=== PATIENT | male | born 1935 | race Caucasian/White ===

== ENCOUNTER 2017-05-02 12:38 | Inpatient (IN) | payer MEDICARE, OTHER ==
--- NOTE | 2017-05-02 13:04 | ERNOTE ---
Dyspnea - General Time Seen by Provider: 05/02/17 13:01 Source: patient, family - patients and friend are in the room for translation Exam Limitations: no limitations - Immun/Allergies/Home Medications Allergies/Adverse Reactions: Allergies No Known Allergies Allergy (Verified 04/14/14 17:29) Home Medications: HOME MEDICATIONS Atorvastatin Calcium [Lipitor] 20 mg PO HS 04/14/14 [Last Taken Unknown] Cetirizine HCl [Zyrtec] 10 mg PO HS 04/14/14 [Last Taken Unknown] Clopidogrel Bisulfate [Plavix] 75 mg PO DAILY 04/14/14 [Last Taken Unknown] Furosemide [Lasix] 40 mg PO DAILY 04/14/14 [Last Taken Unknown] Metoprolol Succinate [Toprol Xl] 25 mg PO HS 04/14/14 [Last Taken Unknown] Potassium Chloride [K-Dur] 40 meq PO DAILY 04/14/14 [Last Taken Unknown] Benazepril HCl 20 mg PO DAILY 05/02/17 [Last Taken Unknown] Pantoprazole Sodium [Protonix] 40 mg PO DAILY 05/02/17 [Last Taken Unknown] - History of Present Illness Narrative: This is a patient who is hearing disabled who presents to the ER and conveys to us that he has had left-sided chest wall pain for approximately 1 week mostly when he tries to get up. There is no history of cough or shortness of breath. Review of Systems - Review of Systems Constitutional: Present: no symptoms reported EYE: Present: no symptoms reported ENT: Present: no symptoms reported Respiratory: Present: no symptoms reported Cardiology: Present: See HPI Gastrointestinal/Abdominal: Present: no symptoms reported Genitourinary: Present: no symptoms reported Musculoskeletal: Present: no symptoms reported Skin: Present: no symptoms reported Physical Exam - Physical Exam General Appearance: Present: wd/wn, alert, no apparent distress - patient appears very pale and tired and fatigued Head Exam: Present: normal inspection, no evidence of injury Ears, Nose, Throat: Present: normal ENT inspection, normal pharynx Neck: Present: normal inspection, nontender Respiratory: Present: no respiratory distress, normal breath sounds, no accessory muscle use, lungs clear, other - there is tenderness in the left upper quadrant of the abdomen upon palpation but no masses and no rebound. There are no bruising in the left chest wall area or crepitus lungs are clear to auscultation bilaterally Cardiovascular/Chest: Present: regular rate, rhythm, no murmur, normal peripheral pulses Gastrointestinal/Abdominal: Present: normal bowel sounds Extremity Exam: Present: normal inspection, normal range of motion Neurological Exam: Present: alert, oriented - H and is deaf however he is able to sign and he is able to understand and read lips. He answers appropriately. ED Progress - Results and Orders Patient's Lab Results:: I have reviewed the patient's lab results. - Vital Signs Patient's Vital Signs:: I have reviewed the patient's vital signs. Vital Signs: Vital Signs 05/02/17 12:51 Temperature 37.1 C Pulse Rate 100 Respiratory 18 Rate Blood Pressure 124/51 O2 Sat by Pulse 95 Oximetry - Progress/Reassessment Chief Complaint: Dyspnea Plan - Plan Plan: This patient has severe anemia with a hemoglobin of 4.9. Additionally his white count is less than 1.6. There is no history of active bleeding however Dr. Real was consulted in regards to admitting this patient for transfusion and further workup. In the stable and appropriate to be admitted type and screen has been ordered. Departure Clinical Impression: Anemia Qualifiers: Anemia type: unspecified type Qualified Code(s): D64.9 - Anemia, unspecified - Departure Disposition: [facility] Condition: Fair
[2017-05-02 13:31] LABS: Mean Cell Volume 105.1 fl (78-100); Mean Corpuscular Hgb Conc 34.3 g/dl (32-36); Mean Platelet Volume 11.2 fl (6.0-9.5); Platelet Count 42 K/mm3 (150-450); Red Blood Count 1.36 M/mm3 (4.7-6.0); Red Cell Distribution Width 19.5 % (11.5-14.0); White Blood Count 0.6 K/mm3 (4.0-10.5)
[2017-05-02 13:32] LABS: Hematocrit 14.3 % (42.0-52.0); Hemoglobin 4.9 gm/dL (13.5-18.0)
[2017-05-02 13:33] LABS: Total Cells Counted 100
[2017-05-02 13:37] LABS: Albumin * 3.2 gm/dl (3.4-5.0); BUN/Creatinine Ratio 20.2 (9.0-21.6); Bilirubin, Total 0.5 mg/dL (0.0-1.1); Ca. Corrected For Albumin 8.3 mg/dL (8.4-10.2); Total Protein 7.3 gm/dL (6.2-8.2)
[2017-05-02 14:01] LABS: Atypical (Reactive) Lymph 8 % (0-2); Immature Granulocyte 2 (0-1); Lymphocyte 50 % (20-51); Monocyte 10 % (0-9); Neutrophil 30 % (42-75); Neutrophil # 0.2 K/mm3 (1.3-6.0); Platelet Estimate Decreased (NORMAL)
[2017-05-02 14:02] LABS: Anisocytosis 2+; Hypochromia 2+; Microcytosis 2+
[2017-05-02 14:06] LABS: Troponin I 0.09 ng/ml (0.00-0.10)
[2017-05-02 14:12] LABS: CKMB 1.1 ng/mL (0.0-9.0)
[2017-05-02 14:18] LABS: Iron 98 mcg/dL (35-120); Transferrin Sat. (% Sat.) 52 % (15-55)
[2017-05-02 14:45] LABS: LD 166 U/L (85-227); Vitamin B12 212 pg/mL (193-986)
[2017-05-02 14:48] LABS: T4 Free * 1.03 ng/dL (0.76-1.46); TSH * 1.451 uIU/mL (0.358-3.74)
[2017-05-02] MEDS ORDERED: FUROSEMIDE 10 MG/ML VIAL IV PRN ×2 (15:16→15:17)
--- NOTE | 2017-05-02 15:43 | PATHPSR ---
PHYSICIAN: Salina Real DO LAB#: [id number] SPECIMEN DATE: 05/02/2017 CLINICAL INFORMATION: Patient is an 82-year-old man with a history of hypertension, congestive heart failure, chronic renal disease, hyperlipidemia, CVA. Previous CBC on 09/24/2016 showing mild pancytopenia WBC 3.9K/mm3, hematocrit 26.4 and platelets 147,000. He presents to [facility] ER with marked pancytopenia and a peripheral smear review is triggered by the abnormal results. CBC: WBC 0.6 K/mm3, hemoglobin4.9 gm/dl, hematocrit 14.3 %, MCV is 105.1 fl, MCH is 36.0 pg, MCHC is 34.3 g/dl, Platelet count 42,000. Manual differential: Neutrophils 30 %, bands 0 %, lymphocytes 50 %, monocytes 10 %, eosinophils 0 %, basophils 0 %, atypical reactive lymphocytes 8 %, immature granulocytes 2%. RED BLOOD CELLS: Hyperchromic macrocytic anemia with 2+ anisocytosis PLATELETS: Thrombocytopenia WHITE BLOOD CELLS: Marked leukopenia with few immature granulocytes PERIPHERAL BLOOD SMEAR, REVIEW BY PATHOLOGIST: -PANCYTOPENIA, SEVERE COMMENT: The etiology of the marked increase in pancytopenia from September 2016 is not determined on review of the peripheral smear. Patient has increased iron stores; normal B12 and folate. Review of the clinical history and possible hematologic consultation for bone marrow evaluation is suggested to determine etiology. Findings are discussed with Dr. Salina Real on 2016.
[2017-05-02] MEDS: CYANOCOBALAMIN 1,000 MCG/ML VIAL IM SCH (17:53)
[2017-05-02] MEDS: LORATADINE 10 MG TABLET PO SCH (20:10)
[2017-05-02] MEDS: ROSUVASTATIN CALCIUM 10 MG TABLET PO SCH (20:10)
[2017-05-02] MEDS: METOPROLOL SUCCINATE 25 MG TABLET.SA PO SCH (20:10)
--- NOTE | 2017-05-02 23:11 | HP ---
Chief Complaint - Chief Complaint Date of Service: 05/02/17 Time of Service: 23:11 Chief Complaint: weakness and abdominal pain with cough History of Present Illness: 82 year old male adm to the hospital from ER with reports of abdominal pain associated with cough and generalized weakness x 1 week. pt stated he has been getting progressively weak over the past week. He has also noticed blood in his stool around the same time. Today he was feeling much worst so his insisted that he come to the hospital. He denies fever, chills, palpitation or rigors.In ER hgb 4.9 Hct 14.3, WBC 0.6 Plt 42 and dimer 0.75. Pt had mild pancytopenia in the past however on this adm he his severe with a WBC 0.6: CXR: Right pleural thickening/ pleural fluid improved resolution of right lung base infiltrate. Recommendation for F/U study in 1 month. He his s/p 2 UPRBC transfused and currently undergoing 2 additional units with an improved hgb 6.9 post initial transfusion.Peripheral smear done --severe pancytopenia and pathology recommendation for bone marrow evaluation. PMH significant for Anemia , esophagitis gastritis, hypertension,CHF, chronic renal disease, hyperlipidemia and CVA (right side residual deficits). Plan of care discussed with pt he verbalized understanding and agree. - Patient's Past Medical History Patient History - Medical: Anemia, GERD, Other - pancytopenia, chronic renal disease, Patient History - Cardiac/Respiratory: CHF, CVA/Stroke, Hypertension, Hyperlipidemia Patient History - Cancer: No Hx of Cancer Patient History - Surgical Procedures: No surgical history Patient History - Other: None - Family History Mother Family History - Medical: Family History - Cardiac/Respiratory: Myocardial Infarction Father Family History - Medical: Family History - Cardiac/Respiratory: Myocardial Infarction - Social History Living Situations: spouse Abuse History: No History of abuse Psych History: No pertinent hx Smoking Status: Never smoker Have you smoked in the past 12 months: No Do you dip or chew tobacco: No Patient requests Smoking Cessation Consult: No Initiate information on Smoking Cessation: No Alcohol Use: none Drug Use: none - Immunizations Immunizations Up to Date: Yes Review Of Systems (GEN) - Review of Systems Generalized/Overall Review: Present: Weakness, Malaise EENTM: Present: Other - deaf Respiratory: Present: Cough Cardiac: Present: No Symptoms Reported Abdominal: Present: Abdominal Pain Genitourinary: Present: No Symptoms Reported Musculoskeletal: Present: No Symptoms Reported Neurological: Present: Weakness - rightside Skin: Present: No Symptoms Reported Endocrine: Present: No Symptoms Reported Allergies/Adverse Reactions: Allergies Allergy/AdvReac Type Severity Reaction Status Date / Time No Known Allergies Allergy Verified 05/02/17 16:21 Home Medications: HOME MEDICATIONS Atorvastatin Calcium [Lipitor] 20 mg PO HS 04/14/14 [Last Taken Unknown] Cetirizine HCl [Zyrtec] 10 mg PO HS 04/14/14 [Last Taken Unknown] Clopidogrel Bisulfate [Plavix] 75 mg PO DAILY 04/14/14 [Last Taken Unknown] Furosemide [Lasix] 40 mg PO DAILY 04/14/14 [Last Taken Unknown] Benazepril HCl 20 mg PO DAILY 05/02/17 [Last Taken Unknown] Furosemide 20 mg PO MOWEFR 05/02/17 [Last Taken Unknown] Lactobacillus 3/Fos/Pantethine [Probiotic & Acidophilus Cap] 1 each PO DAILY [Last Taken Unknown] Metoprolol Tartrate [Lopressor] 25 mg PO HS 05/02/17 [Last Taken Unknown] Multivitamins [Multivitamin Saniya] 1 cap PO DAILY 05/02/17 [Last Taken Unknown] Pantoprazole Sodium [Protonix] 40 mg PO DAILY 05/02/17 [Last Taken Unknown] Potassium Chloride [Klor-Con 10] 10 meq PO MOWEFR 05/02/17 [Last Taken Unknown] Exam - Exam Vital Signs: Vital Signs - Last Taken Temp 37 C 05/02/17 22:04 Pulse 105 H 05/02/17 22:04 Resp 20 05/02/17 22:04 BP 163/64 05/02/17 22:04 Pulse Ox 95 05/02/17 22:04 Constitutional: Present: Alert, Oriented x3, Cooperative, Elderly, Morbidly obese ENT Exam: Present: hard of hearing Eye Exam: bilateral eye: normal inspection Neck: Present: full range of motion Back Exam: Present: normal inspection Breasts: Present: Exam deferred Respiratory: Present: chest non-tender, normal breath sounds, no respiratory distress, decreased breath sounds Cardiovascular/Chest: Present: normal peripheral pulses, regular rate, rhythm Peripheral Pulses: dorsalis-pedis (R): 3+, dorsalis-pedis (L): 3+ Abdomen: Present: Normal bowel sounds, soft, nondistended, guarding - Left upper quadrant /Rectal: Present: Exam deferred Extremity: Present: non-tender, normal inspection, no pedal edema, no calf tenderness, normal capillary refill Skin Exam: Present: normal color Neurologic: Present: oriented x 3 Appearance: Present: appropriate appearance Eye contact: Present: cooperative, good eye contact Thoughts: Present: normal thought pattern Diagnostic Studies: Laboratory Results WBC 0.6 K/mm3 (4.0-10.5) L 05/02/17 13:15 RBC 1.36 M/mm3 (4.7-6.0) L 05/02/17 13:15 Hgb 4.9 gm/dL (13.5-18.0) L* D 05/02/17 13:15 Hct 14.3 % (42.0-52.0) L* D 05/02/17 13:15 MCV 105.1 fl (78-100) H 05/02/17 13:15 MCH 36.0 pg (27-31) H 05/02/17 13:15 MCHC 34.3 g/dl (32-36) 05/02/17 13:15 RDW 19.5 % (11.5-14.0) H 05/02/17 13:15 Plt Count 42 K/mm3 (150-450) L 05/02/17 13:15 MPV 11.2 fl (6.0-9.5) H 05/02/17 13:15 Neutrophils % (Manual) 30 % (42-75) L 05/02/17 13:15 Lymphocytes % (Manual) 50 % (20-51) 05/02/17 13:15 Monocytes % (Manual) 10 % (0-9) H 05/02/17 13:15 Immature Granulocytes 2 (0-1) H 05/02/17 13:15 Neutrophils # (Manual) 0.2 K/mm3 (1.3-6.0) L 05/02/17 13:15 Lymphocytes # (Manual) 0.3 k/mm3 (1.5-3.5) L 05/02/17 13:15 Monocytes # (Manual) 0.1 k/mm3 (0.0-1.0) 05/02/17 13:15 Atypic/Reactive Lymphs 8 % (0-2) H 05/02/17 13:15 Platelet Estimate Decreased (NORMAL) L 05/02/17 13:15 Hypochromasia 2+ 05/02/17 13:15 Anisocytosis 2+ 05/02/17 13:15 Microcytosis 2+ 05/02/17 13:15 Peripheral Blood Smear Smear sent to path. 05/02/17 13:15 Absolute Retic 0.0344 05/02/17 13:15 Percent Retic 2.6 % (0.4-1.8) H 05/02/17 13:15 Immature Retic Fraction 21.8 % (2.3-13.4) H 05/02/17 13:15 Retic Hgb Content 45.5 pg (29-35) H 05/02/17 13:15 D-Dimer 0.75 mg/L (0.19-0.49) H 05/02/17 13:15 Sodium 143 mmol/L (132-142) H 05/02/17 13:15 Plasma Sodium 143 mmol/L (130-142) H 05/02/17 13:15 Potassium 4.0 mmol/L (3.4-4.6) 05/02/17 13:15 Chloride 108 mmol/L (97-106) H 05/02/17 13:15 Carbon Dioxide 23.0 mmol/L (24-32.6) L 05/02/17 13:15 Anion Gap 16.0 mmol/L (6.8-13.8) H 05/02/17 13:15 BUN 35 mg/dL (6-23) H 05/02/17 13:15 Creatinine 1.73 mg/dL (0.4-1.4) H 05/02/17 13:15 Est GFR (Non-Af Amer) 41 mL/min (60-130) L 05/02/17 13:15 BUN/Creatinine Ratio 20.2 (9.0-21.6) 05/02/17 13:15 Random Glucose 114 mg/dL (70-110) H 05/02/17 13:15 Calcium 8.0 mg/dL (7.9-10.9) 05/02/17 13:15 Calcium Adj for Albumin 8.3 mg/dL (8.4-10.2) L 05/02/17 13:15 Iron 98 mcg/dL (35-120) 05/02/17 13:15 TIBC 188 mcg/dL (260-445) L 05/02/17 13:15 Transferrin % Sat 52 % (15-55) 05/02/17 13:15 Ferritin 478 ng/mL (26-388) H 05/02/17 13:30 Total Bilirubin 0.5 mg/dL (0.0-1.1) 05/02/17 13:15 AST 12 U/L (0-48) 05/02/17 13:15 ALT 12 U/L (19-67) L 05/02/17 13:15 Alkaline Phosphatase 54 U/L (50-170) 05/02/17 13:15 Lactate Dehydrogenase 166 U/L (85-227) 05/02/17 13:15 CK-MB (CK-2) 1.1 ng/mL (0.0-9.0) 05/02/17 13:15 Troponin I 0.090 ng/ml (0.00-0.10) 05/02/17 13:15 Total Protein 7.3 gm/dL (6.2-8.2) 05/02/17 13:15 Albumin 3.2 gm/dl (3.4-5.0) L 05/02/17 13:15 Vitamin B12 212 pg/mL (193-986) 05/02/17 13:15 Folate Greater than 20.0 ng/mL (>5.4) 05/02/17 13:15 TSH 1.451 uIU/mL (0.358-3.74) 05/02/17 13:30 Free T4 1.03 ng/dL (0.76-1.46) 05/02/17 13:30 Stool Occult Blood Negative 05/02/17 14:15 Blood Type O Positive 05/02/17 13:40 Antibody Screen Negative 05/02/17 13:40 Crossmatch See Detail 05/02/17 13:40 Assessment/Plan - Narrative Narrative: Macrocytic Anemia Pt has been anemic and needed blood transfusion On this adm hgb/Hct--->4.9/14.3 S/P 2UPRBC with 2 additional unit infusing monitor h/H 1hr post transfusion Pancytopenia On adm WBC 0.6, hgb 4.9 and Plt 42 Peripheral smear confirmed severe pancytopenia pathologist recommendation for bone marrow evaluation Thrombocytopenia On adm PLT 42 Code status: Full DVT ppx: SCD GI ppx: Protonix Time 45 minutes - Assessment/Plan (1) Pancytopenia Problem: Acute (2) Thrombocytopenia Problem: Acute (3) Anemia Problem: Chronic Qualifiers: Anemia type: unspecified type Qualified Code(s): D64.9 - Anemia, unspecified (4) CVA (cerebral vascular accident) Problem: Chronic (5) Hypertension Problem: Chronic (6) CHF (congestive heart failure) Problem: Chronic
[2017-05-02 23:17] LABS: Hematocrit 19.9 % (42.0-52.0); Hemoglobin 6.9 gm/dL (13.5-18.0)
[2017-05-02] MEDS ORDERED: diphenhydrAMINE HCL 50 MG/ML VIAL IV ONE (23:27)
[2017-05-02] MEDS ORDERED: ACETAMINOPHEN 325 MG TABLET PO ONE (23:27)
[2017-05-03] MEDS ORDERED: FUROSEMIDE 10 MG/ML VIAL IV ONE (03:04)
[2017-05-03] MEDS: PANTOPRAZOLE SODIUM 40 MG TABLET.EC PO SCH (07:23)
[2017-05-03] MEDS: POTASSIUM CHLORIDE 20 MEQ TABLET.SA PO SCH (08:49)
[2017-05-03] MEDS: FUROSEMIDE 40 MG TABLET PO SCH (08:49)
[2017-05-03] MEDS: CYANOCOBALAMIN 1,000 MCG/ML VIAL IM SCH (08:49)
[2017-05-03] MEDS: ENALAPRIL MALEATE 20 MG TABLET PO SCH (08:52)
[2017-05-03 09:03] LABS: Hematocrit 26.2 % (42.0-52.0)
[2017-05-03 09:20] LABS: BUN/Creatinine Ratio 21.9 (9.0-21.6); Calcium * 7.7 mg/dL (7.9-10.9); Carbon Dioxide 24.5 mmol/L (24-32.6); Estimated Creat Clear 33.7; Potassium 3.5 mmol/L (3.4-4.6)
[2017-05-03 17:59] LABS: Hematocrit 26.3 % (42.0-52.0); Mean Cell Volume 93.9 fl (78-100); Mean Corpuscular Hemoglobin 32.1 pg (27-31); Mean Corpuscular Hgb Conc 34.2 g/dl (32-36); Mean Platelet Volume 10.9 fl (6.0-9.5); Platelet Count 35 K/mm3 (150-450); Red Cell Distribution Width 19.5 % (11.5-14.0); White Blood Count 0.9 K/mm3 (4.0-10.5)
--- NOTE | 2017-05-03 20:01 | PN ---
Subjective - Date and Time Seen Date: 05/03/17 Time: 19:56 Subjective Narrative: Patient seen today AOX3 no acute distress, he denies lightheadedness, dizziness , fever, chills, malaise and shortness of breath. pt stated he was feeling much better and anticipating discharge home tomorrow. pt tolerated blood transfusion well and looking forward to bone marrow evaluation upon discharge. plan of care discussed with pt he verbalized understanding by writing and agrees. Objective - Review of Systems Generalized/Overall Review: Reports: No Symptoms Reported EENTM: Reports: No Symptoms Reported Respiratory: Reports: No Symptoms Reported Cardiac: Reports: No Symptoms Reported Abdominal: Reports: No Symptoms Reported Genitourinary Symptoms: Reports: No Symptoms Reported Musculoskeletal Complaints: Reports: No Symptoms Reported Neurological: Reports: No Symptoms Reported Skin: Reports: No Symptoms Reported Endocrine: Reports: No Symptoms Reported - Vitals Vitals: Last Vital Signs Temp 36.4 C L 05/03/17 15:00 Pulse 78 05/03/17 15:00 Resp 16 05/03/17 15:00 BP 144/53 05/03/17 15:00 Pulse Ox 97 05/03/17 15:00 - Abnormal Lab Findings Abnormal Lab Findings: Abnormal Lab Results 05/02/17 05/03/17 05/03/17 Range/Units 23:09 08:58 08:58 WBC (4.0-10.5) K/mm3 RBC (4.7-6.0) M/mm3 Hgb 6.9 L* D 9.0 L (13.5-18.0) gm/dL Hct 19.9 L* D 26.2 L (42.0-52.0) % MCH (27-31) pg RDW (11.5-14.0) % Plt Count (150-450) K/mm3 MPV (6.0-9.5) fl Anion Gap 15.0 H (6.8-13.8) mmol/L BUN 37 H (6-23) mg/dL Creatinine 1.69 H (0.4-1.4) mg/dL Est GFR (Non-Af Amer) 42 L (60-130) mL/min BUN/Creatinine Ratio 21.9 H (9.0-21.6) Random Glucose 154 H D (70-110) mg/dL Calcium 7.7 L (7.9-10.9) mg/dL 05/03/17 Range/Units 17:54 WBC 0.9 L D (4.0-10.5) K/mm3 RBC 2.80 L (4.7-6.0) M/mm3 Hgb 9.0 L (13.5-18.0) gm/dL Hct 26.3 L (42.0-52.0) % MCH 32.1 H (27-31) pg RDW 19.5 H (11.5-14.0) % Plt Count 35 L (150-450) K/mm3 MPV 10.9 H (6.0-9.5) fl Anion Gap (6.8-13.8) mmol/L BUN (6-23) mg/dL Creatinine (0.4-1.4) mg/dL Est GFR (Non-Af Amer) (60-130) mL/min BUN/Creatinine Ratio (9.0-21.6) Random Glucose (70-110) mg/dL Calcium (7.9-10.9) mg/dL - Exam Constitutional: Present: Alert, Oriented x3, Cooperative, Morbidly obese ENT Exam: Present: other - deaf Neck: Present: full range of motion Breasts: Present: Exam deferred Respiratory: Present: chest non-tender, normal breath sounds, no respiratory distress Cardiovascular/Chest: Present: normal peripheral pulses, regular rate, rhythm, no chest tenderness Abdomen: Present: Normal bowel sounds, soft, nontender, nondistended, no rebound tenderness /Rectal: Present: Exam deferred Extremity: Present: normal range of motion, other - rightside hemiparesis Skin Exam: Present: normal color, warm/dry Neurologic: Present: alert, oriented x 3, abnormal gait, motor weakness Appearance: Present: appropriate appearance, appropriate insight Eye contact: Present: cooperative, good eye contact Thoughts: Present: normal thought pattern Assessment/Plan Plan Narrative: Macrocytic Anemia- stable Pt has been anemic and needed blood transfusion On this adm hgb/Hct--->4.9/14.3---->9.0/26.2 post 4 UPRBC Monitor H/H In AM Pancytopenia On adm WBC 0.6-->0.9, hgb 4.9--->9.0, and Plt 42---->35 Peripheral smear confirmed severe pancytopenia pathologist recommendation for bone marrow evaluation pending Thrombocytopenia On adm PLT 42--->35 No observed or reports of active bleeding Chronic conditions that are stable CHF Hypertension CVA with rightside hemiparesis Code status: Full DVT ppx: SCD GI ppx: Protonix Anticipate discharge home tomorrow while H/H remains stable Plan to follow up out-pt for bone marrow evaluation. Time 25 minutes - Problems/Diagnosis (1) Pancytopenia Problem: Acute (2) Thrombocytopenia Problem: Acute (3) Anemia Problem: Chronic Qualifiers: Anemia type: unspecified type Qualified Code(s): D64.9 - Anemia, unspecified (4) CVA (cerebral vascular accident) Problem: Chronic (5) Hypertension Problem: Chronic (6) CHF (congestive heart failure) Problem: Chronic
[2017-05-03] MEDS: METOPROLOL SUCCINATE 25 MG TABLET.SA PO SCH (20:41)
[2017-05-03] MEDS: ROSUVASTATIN CALCIUM 10 MG TABLET PO SCH (20:41)
[2017-05-03] MEDS: LORATADINE 10 MG TABLET PO SCH (20:41)
[2017-05-04 06:25] LABS: Hematocrit 26.1 % (42.0-52.0); Mean Cell Volume 93.9 fl (78-100); Mean Corpuscular Hemoglobin 32.4 pg (27-31); Mean Corpuscular Hgb Conc 34.5 g/dl (32-36); Mean Platelet Volume 12.1 fl (6.0-9.5); Platelet Count 61 K/mm3 (150-450); Red Blood Count 2.78 M/mm3 (4.7-6.0); Red Cell Distribution Width 19.4 % (11.5-14.0); White Blood Count 0.9 K/mm3 (4.0-10.5)
[2017-05-04 06:27] LABS: Anion Gap 15.5 mmol/L (6.8-13.8); BUN/Creatinine Ratio 22.2 (9.0-21.6); Calcium * 8.4 mg/dL (7.9-10.9); Carbon Dioxide 22.9 mmol/L (24-32.6); Estimated Creat Clear 35.2; Potassium 4.4 mmol/L (3.4-4.6); Total Cells Counted 100
[2017-05-04 06:55] LABS: Atypical (Reactive) Lymph 13 % (0-2); Lymphocyte 52 % (20-51); Monocyte 12 % (0-9); Neutrophil 23 % (42-75); Neutrophil # 0.2 K/mm3 (1.3-6.0)
[2017-05-04 06:57] LABS: Anisocytosis 2+; Ovalocytes 1+; Platelet Estimate Decreased (NORMAL)
[2017-05-04 07:03] VITALS: BP 127/56
[2017-05-04] MEDS: PANTOPRAZOLE SODIUM 40 MG TABLET.EC PO SCH (07:06)
[2017-05-04] MEDS: POTASSIUM CHLORIDE 20 MEQ TABLET.SA PO SCH (08:36)
[2017-05-04] MEDS: FUROSEMIDE 40 MG TABLET PO SCH (08:36)
[2017-05-04] MEDS: ENALAPRIL MALEATE 20 MG TABLET PO SCH (08:36)
[2017-05-04] MEDS: CYANOCOBALAMIN 1,000 MCG/ML VIAL IM SCH (08:43)
--- NOTE | 2017-05-04 09:43 | DS ---
(1) Pancytopenia Problem: Acute Description of Stay: ADMISSION DATE: 05/02/2017 DISCHARGE DATE: 05/04/2017 ADMISSION HPI: 82 year old male adm to the hospital from ER with reports of abdominal pain associated with cough and generalized weakness x 1 week. pt stated he has been getting progressively weak over the past week. He has also noticed blood in his stool around the same time. Today he was feeling much worst so his insisted that he come to the hospital. He denies fever, chills, palpitation or rigors.In ER hgb 4.9 Hct 14.3, WBC 0.6 Plt 42 and dimer 0.75. Pt had mild pancytopenia in the past however on this adm he his severe with a WBC 0.6: CXR: Right pleural thickening/ pleural fluid improved resolution of right lung base infiltrate. Recommendation for F/U study in 1 month. He his s/p 2 UPRBC transfused and currently undergoing 2 additional units with an improved hgb 6.9 post initial transfusion.Peripheral smear done --severe pancytopenia and pathology recommendation for bone marrow evaluation. PMH significant for Anemia , esophagitis gastritis, hypertension,CHF, chronic renal disease, hyperlipidemia and CVA (right side residual deficits). Plan of care discussed with pt he verbalized understanding and agree. HOSPITAL COURSE: The patient was admitted to the hospital with severe pancytopenia of unclear etiology. Complete workup including labs and peripheral smear were completed prior to the patient being transfused. The patient was transfused a total of 4 units of packed red blood cells during his admission. The patient had an uneventful admission and was discharged home in stable condition. He was instructed to follow-up with his primary care physician at which time I would recommend referral for a bone marrow biopsy for further evaluation of the patient's pancytopenia. FOLLOW-UP APPOINTMENTS: PCP, Dr. Christie, within 1-2 weeks. If patient is agreeable, I would recommend patient be referred for a bone marrow biopsy. NEW OR CHANGED MEDICATIONS: Cyanocobalamin 1000mcg PO daily DISCONTINUED MEDICATIONS: None Procedures Performed: none Results and Findings: Laboratory Tests 05/02/17 05/02/17 05/02/17 13:15 13:15 13:15 Hgb 4.9 L* D Hct 14.3 L* D MCV 105.1 H Plt Count 42 L Percent Retic Immature Retic Fraction Retic Hgb Content D-Dimer 0.75 H Sodium 143 H Plasma Sodium 143 H Potassium 4.0 Chloride 108 H Carbon Dioxide 23.0 L Anion Gap 16.0 H BUN 35 H Creatinine 1.73 H Est GFR (Non-Af Amer) 41 L BUN/Creatinine Ratio 20.2 Random Glucose 114 H Calcium 8.0 Calcium Adj for Albumin 8.3 L Iron TIBC Transferrin % Sat Ferritin Total Bilirubin 0.5 AST 12 ALT 12 L Alkaline Phosphatase 54 Lactate Dehydrogenase CK-MB (CK-2) Troponin I Total Protein 7.3 Albumin 3.2 L Vitamin B12 Folate TSH Free T4 Free T3 Stool Occult Blood 05/02/17 05/02/17 05/02/17 13:15 13:15 13:15 Hgb Hct MCV Plt Count Absolute Retic Percent Retic Immature Retic Fraction Retic Hgb Content D-Dimer Sodium Plasma Sodium Potassium Chloride Carbon Dioxide Anion Gap BUN Creatinine Est GFR (Non-Af Amer) BUN/Creatinine Ratio Random Glucose Calcium Calcium Adj for Albumin Iron 98 TIBC 188 L Transferrin % Sat 52 Ferritin Total Bilirubin AST ALT Alkaline Phosphatase Lactate Dehydrogenase 166 CK-MB (CK-2) 1.1 Troponin I 0.090 Total Protein Albumin Vitamin B12 212 Folate Greater than 20.0 TSH Free T4 Free T3 Stool Occult Blood 05/02/17 05/02/17 05/02/17 13:15 13:15 13:30 Hgb Hct MCV Plt Count Absolute Retic 0.0344 Percent Retic 2.6 H Immature Retic Fraction 21.8 H Retic Hgb Content 45.5 H D-Dimer Sodium Plasma Sodium Potassium Chloride Carbon Dioxide Anion Gap BUN Creatinine Est GFR (Non-Af Amer) BUN/Creatinine Ratio Random Glucose Calcium Calcium Adj for Albumin Iron TIBC Transferrin % Sat Ferritin 478 H Total Bilirubin AST ALT Alkaline Phosphatase Lactate Dehydrogenase CK-MB (CK-2) Troponin I Total Protein Albumin Vitamin B12 Folate TSH 1.451 Free T4 1.03 Free T3 1.9 L Stool Occult Blood 05/02/17 05/02/17 05/03/17 14:15 23:09 08:58 Hgb 6.9 L* D 9.0 L Hct 19.9 L* D 26.2 L MCV Plt Count Absolute Retic Percent Retic Immature Retic Fraction Retic Hgb Content D-Dimer Sodium Plasma Sodium Potassium Chloride Carbon Dioxide Anion Gap BUN Creatinine Est GFR (Non-Af Amer) BUN/Creatinine Ratio Random Glucose Calcium Calcium Adj for Albumin Iron TIBC Transferrin % Sat Ferritin Total Bilirubin AST ALT Alkaline Phosphatase Lactate Dehydrogenase CK-MB (CK-2) Troponin I Total Protein Albumin Vitamin B12 Folate TSH Free T4 Free T3 Stool Occult Blood Negative 05/03/17 05/03/17 05/04/17 08:58 17:54 06:10 Hgb 9.0 L 9.0 L Hct 26.3 L 26.1 L MCV 93.9 93.9 Plt Count 35 L 61 L Absolute Retic Percent Retic Immature Retic Fraction Retic Hgb Content D-Dimer Sodium 138 Plasma Sodium 138 Potassium 4.4 Chloride 104 Carbon Dioxide 22.9 L Anion Gap 15.5 H BUN 36 H Creatinine 1.69 H 1.62 H Est GFR (Non-Af Amer) 44 L BUN/Creatinine Ratio 22.2 H Random Glucose 116 H Calcium 8.4 Calcium Adj for Albumin Iron TIBC Transferrin % Sat Ferritin Total Bilirubin AST ALT Alkaline Phosphatase Lactate Dehydrogenase CK-MB (CK-2) Troponin I Total Protein Albumin Vitamin B12 Folate TSH Free T4 Free T3 Stool Occult Blood Discharge Disposition: Home self care Disposition: Home self-care Condition: Stable Discharge Activity: Activity as tolerated Discharge Diet: Resume usual diet Problem Oriented Discharge Instructions to Patient/Family: Anemia, Nonspecific Additional Patient Instructions (free text): Follow-up with PCP, Dr. Christie, within 1-2 weeks [facility] will call you Friday with follow up appt. Prescriptions (Any new or edited meds): Cyanocobalamin [Vitamin B-12] 1,000 mcg PO DAILY #30 tab Complete Home Medications List: Complete Home Medication List: Atorvastatin Calcium [Lipitor] 20 mg PO HS 04/14/14 Cetirizine HCl [Zyrtec] 10 mg PO HS 04/14/14 Clopidogrel Bisulfate [Plavix] 75 mg PO DAILY 04/14/14 Furosemide [Lasix] 40 mg PO DAILY 04/14/14 Benazepril HCl 20 mg PO DAILY 05/02/17 Furosemide 20 mg PO MOWEFR 05/02/17 Lactobacillus 3/Fos/Pantethine [Probiotic & Acidophilus Cap] 1 each PO DAILY Metoprolol Tartrate [Lopressor] 25 mg PO HS 05/02/17 Multivitamins [Multivitamin Saniya] 1 cap PO DAILY 05/02/17 Pantoprazole Sodium [Protonix] 40 mg PO DAILY 05/02/17 Potassium Chloride [Klor-Con 10] 10 meq PO MOWEFR 05/02/17 Cyanocobalamin [Vitamin B-12] 1,000 mcg PO DAILY #30 tab 05/04/17
[2017-05-05 16:38] LABS: Haptoglobin 256 mg/dL (43-212)
== END 2017-05-04 11:45 | disposition home or self-care (01) | DRG 809 ==
LOC: ER 12:38 → OBSVTOIN 14:00 → MS 14:00
PROVIDERS: ADMIT Internal Medicine; ATTEND Internal Medicine
DX: D61.818 Other pancytopenia (principal); I69.354 Hemiplegia and hemiparesis following cerebral infarction affecting left non-dominant side; I10 Essential (primary) hypertension; I50.9 Heart failure, unspecified; D64.9 Anemia, unspecified
CPT/HCPCS: 36415; 71010; 80048; 80053; 82272; 82553; 82607; 82728; 82746; 83010; 83540; 83550; 83615; 84439; 84443; 84466; 84481; 84484; 85007; 85014; 85018; 85025; 85027; 85045; 85379; 86850; 86900; 93005; 99283; P9016

== ENCOUNTER 2017-06-06 14:41 | Emergency (ER) | payer MEDICARE, OTHER ==
[2017-06-06 15:13] LABS: Mean Cell Volume 95.7 fl (78-100); Mean Corpuscular Hemoglobin 31.9 pg (27-31); Mean Corpuscular Hgb Conc 33.3 g/dl (32-36); Red Blood Count 1.63 M/mm3 (4.7-6.0); Red Cell Distribution Width 19.2 % (11.5-14.0); White Blood Count 0.7 K/mm3 (4.0-10.5)
[2017-06-06 15:15] LABS: Hematocrit 15.6 % (42.0-52.0); Hemoglobin 5.2 gm/dL (13.5-18.0)
[2017-06-06 15:30] LABS: Albumin * 2.9 gm/dl (3.4-5.0); Anion Gap 16.1 mmol/L (6.8-13.8); BUN/Creatinine Ratio 20.6 (9.0-21.6); Bilirubin, Total 1.1 mg/dL (0.0-1.1); Ca. Corrected For Albumin 9.2 mg/dL (8.4-10.2); Calcium * 8.6 mg/dL (7.9-10.9); Carbon Dioxide 20.4 mmol/L (24-32.6); Potassium 4.5 mmol/L (3.4-4.6); Total Protein 7.8 gm/dL (6.2-8.2)
--- NOTE | 2017-06-06 15:55 | ERNOTE ---
Medical Problem HPI - General Chief Complaint: General Assessment Time Seen by Provider: 06/06/17 15:24 Source: patient Exam Limitations: other - Immun/Allergies/Home Medications Immunizations: IMMUNIZATION HX Immunizations Up to Date Yes Allergies/Adverse Reactions: Allergies No Known Allergies Allergy (Verified 06/06/17 14:51) Home Medications: HOME MEDICATIONS Atorvastatin Calcium [Lipitor] 20 mg PO HS 04/14/14 [Last Taken Unknown] Cetirizine HCl [Zyrtec] 10 mg PO HS 04/14/14 [Last Taken Unknown] Clopidogrel Bisulfate [Plavix] 75 mg PO DAILY 04/14/14 [Last Taken Unknown] Furosemide [Lasix] 40 mg PO DAILY 04/14/14 [Last Taken Unknown] Benazepril HCl 20 mg PO DAILY 05/02/17 [Last Taken Unknown] Furosemide 20 mg PO MOWEFR 05/02/17 [Last Taken Unknown] Lactobacillus 3/Fos/Pantethine [Probiotic & Acidophilus Cap] 1 each PO DAILY [Last Taken Unknown] Metoprolol Tartrate [Lopressor] 25 mg PO HS 05/02/17 [Last Taken Unknown] Multivitamins [Multivitamin Saniya] 1 cap PO DAILY 05/02/17 [Last Taken Unknown] Pantoprazole Sodium [Protonix] 40 mg PO DAILY 05/02/17 [Last Taken Unknown] Potassium Chloride [Klor-Con 10] 10 meq PO MOWEFR 05/02/17 [Last Taken Unknown] Cyanocobalamin [Vitamin B-12] 1,000 mcg PO DAILY #30 tab 05/04/17 [Last Taken Unknown] - History of Present History Narrative: 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 Clerical Adviser services are used but after a few minutes patient patient refuses to use them as he is too tired. Patient was recently diagnosed with leukemia, not sure whether he is receiving any treatment. Diagnosis was in [facility] in [place], no notes available at this time. Over the last two days he has been getting progressively weak. Today he asked to be taken to the hospital. His weakness is generalized, he report pain in both arms and to a lesser degree in his chest Review of Systems - Narrative Narrative: limited by deafness - Review of Systems Constitutional: Present: weakness Cardiology: Present: chest pain Hematologic/Lymphatic: Present: no symptoms reported, other - denies any bleeding - Patient's Past Medical History Patient History - Medical: Anemia, GERD, Other Patient History - Cardiac/Respiratory: CHF, CVA/Stroke, Hypertension, Hyperlipidemia Patient History - Cancer: Leukemia Patient History - Surgical Procedures: No surgical history Patient History - Other: None - Family History Mother Family History - Medical: Family History - Cardiac/Respiratory: Myocardial Infarction Father Family History - Medical: Family History - Cardiac/Respiratory: Myocardial Infarction - Social History Living Situations: home Abuse History: No History of abuse Psych History: No pertinent hx - Immunizations Immunizations Up to Date: Yes Physical Exam - Physical Exam General Appearance: Present: mild distress, anxious, obese Head Exam: Present: normal inspection Eye Exam: Normal inspection: bilateral, PERRL: bilateral Ears, Nose, Throat: Present: normal pharynx Respiratory: Present: no respiratory distress, normal breath sounds, no accessory muscle use, lungs clear Cardiovascular/Chest: Present: tachycardia Gastrointestinal/Abdominal: Present: nontender, nondistended, soft Neurological Exam: Present: alert, other - moves all extremities Skin Exam: Present: warm/dry, pallor ED Progress - Results and Orders Patient's Lab Results:: I have reviewed the patient's lab results. - Vital Signs Patient's Vital Signs:: I have reviewed the patient's vital signs. Vital Signs: Vital Signs 06/06/17 06/06/17 14:42 15:21 Temperature 37.3 C 37.6 C H Pulse Rate 130 H 130 H Respiratory 22 H Rate Blood Pressure 161/59 O2 Sat by Pulse 94 Oximetry - X-Ray X-Ray #1 X-Ray: chest - bilateral pneumonia vs atelectasis Interpretation: Reviewed by me - Progress/Reassessment Chief Complaint: General Assessment Progress Note-Subjective: 06/06/17 17:00 Patient meets SIRS criteria and possible pneumonia, will start levaquin blood pressure stable, patient remains tachycardic and tachypnoic 06/06/17 17:[address] Rhodes, since patient is severely neutropenic recommends transfer to hospital with hematology support 06/06/17 17:13 call to [facility] ER, discussed with Dr Curiel (ERP), per hem/onc notes available in their system patient received recommendation to go to [facility], 06/06/17 17:23 call to [facility], 06/06/17 17:[address] Clinton (ERP) accepted patient for transfer, recommends starting cefepime 06/06/17 18:46 phone call from deaf translater service (Sarah #[phone]) related through her to that patient was transferred to [facility] Departure Clinical Impression: Pancytopenia Pneumonia Qualifiers: Pneumonia type: due to unspecified organism Laterality: bilateral Lung location : lower lobe of lung Qualified Code(s): J18.9 - Pneumonia, unspecified organism Sepsis Qualifiers: Sepsis type: sepsis due to unspecified organism Qualified Code(s): A41.9 - Sepsis, unspecified organism Leukemia Qualifiers: Leukemia type: unspecified Leukemia Active/Remission status: without remission Qualified Code(s): C95.90 - Leukemia, unspecified not having achieved remission - Departure Disposition: [facility] Condition: Fair
[2017-06-06] MEDS: NORMAL SALINE 1,000 ML IV PRN ×2 (15:56→16:57)
[2017-06-06 16:22] LABS: Atypical (Reactive) Lymph 12 % (0-2); Lymphocyte 36 % (20-51); Monocyte 50 % (0-9); Neutrophil 2 % (42-75); Total Cells Counted 50
[2017-06-06 16:23] LABS: Hypochromia 1+; Platelet Estimate Decreased (NORMAL)
[2017-06-06 16:24] LABS: Anisocytosis 2+; Ovalocytes 1+
[2017-06-06 16:35] LABS: Mean Platelet Volume 12.1 fl (6.0-9.5); Platelet Count 17 K/mm3 (150-450)
[2017-06-06] MEDS ORDERED: LEVOFLOXACIN/D5W 750 MG/150 ML BAG IV ONE (17:00)
[2017-06-06] MEDS ORDERED: CEFEPIME HCL 1 GM in DEXTROSE 5 % IN WATER 100 ML IV ONE ×2 (17:36)
[2017-06-06] MEDS ORDERED: ACETAMINOPHEN 325 MG TABLET PO ONE (17:46)
[2017-06-06 17:56] VITALS: BP 144/68
[2017-06-06] MEDS ORDERED: ACETAMINOPHEN 325 MG TABLET ONE (18:05)
[2017-06-06 18:26] LABS: Urine Appearance Clear; Urine Bilirubin Negative (NEGATIVE); Urine Blood 25 /ul (NEGATIVE); Urine Color Yellow; Urine Ketone Negative (NEGATIVE); Urine Nitrite Negative (NEGATIVE); Urine Protein Negative (NEGATIVE); Urine Urobilinogen Normal (NORMAL); Urine pH 5.5 pH (5.0-7.0)
[2017-06-06 18:27] LABS: Urine Bacteria TRACE; Urine RBC TRACE /hpf (0-5); Urine WBC None Seen /hpf (0-5)
== END 2017-06-06 18:33 | disposition short-term general hospital (02) ==
LOC: ER 14:41
PROC: 30233N1 Transfusion of Nonautologous Red Blood Cells into Peripheral Vein, Percutaneous Approach (ICD-10-PCS; principal; 2017-06-06)
DX: D61.818 Other pancytopenia (principal); J18.9 Pneumonia, unspecified organism; A41.9 Sepsis, unspecified organism; C95.90 Leukemia, unspecified not having achieved remission; D64.9 Anemia, unspecified; K21.9 Gastro-esophageal reflux disease without esophagitis; I50.9 Heart failure, unspecified; Z86.73 Personal history of transient ischemic attack (TIA), and cerebral infarction without residual deficits; I10 Essential (primary) hypertension; E78.5 Hyperlipidemia, unspecified
CPT/HCPCS: 36415; 36430; 71010; 80053; 81001; 83605; 85025; 86850; 86900; 87040; 87077; 87086; 93005; 96365; 99285; P9016